=== PATIENT | female | born 1960 | race Caucasian/White ===

== ENCOUNTER 2018-07-31 14:40 | Emergency (ER) | payer MEDICAID ==
[~2018-07-31] VITALS: Ht 157.5 cm; Wt 88.0 kg
[2018-07-31] MEDS ORDERED: IBUPROFEN 600MG TABLET PO ONE (18:30)
[2018-07-31 18:34] VITALS: BP 166/73
== END 2018-07-31 18:52 | disposition home or self-care (01) ==
LOC: ER 14:40 → EDSEX 14:40 → ER 18:52
DX: H00.14 Chalazion left upper eyelid (principal); H01.004 Unspecified blepharitis left upper eyelid; R03.0 Elevated blood-pressure reading, without diagnosis of hypertension
CPT/HCPCS: 99282